=== PATIENT | male | born 1975 | race Caucasian/White ===

== ENCOUNTER → 2017-06-10 | Outpatient (CLI) | payer OTHER ==
[~2017-06-10] MED LIST: PRLSR20 PO
== END | disposition home or self-care (01) ==
LOC: C.PATHSPEC 17:52
PROVIDERS: ATTEND Urology
DX: Z30.2 Encounter for sterilization (principal)

== ENCOUNTER → 2017-07-03 | Outpatient (CLI) | payer OTHER ==
[~2017-07-03] VITALS: Ht 172.7 cm; Wt 85.4 kg
[2017-07-03 14:00] VITALS: BP 145/83; PULSE 62; Ht 172.7 cm; Wt 85.4 kg
== END | disposition home or self-care (01) ==
LOC: C.NEUR 13:13
PROVIDERS: ATTEND Internal Medicine Pulmonary Disease
DX: G47.33 Obstructive sleep apnea (adult) (pediatric) (principal)

== ENCOUNTER → 2017-08-11 | Outpatient (CLI) | payer OTHER ==
--- NOTE | 2017-08-18 07:49 | Sleep Study ---
Sleep Study Report Date of Service: 08/11/2017 Sleep Study Report CLINICAL DATA: The patient is a 41-year-old male with a history of snoring, disturbed nocturnal sleep, and excessive daytime somnolence. He completed the Mobile Sleepiness Scale and had a score of 10. The patient's father has obstructive sleep apnea despite not being significantly overweight. On the evening of 08/11 a home sleep apnea test was performed using the [employer] type 3 monitor. RECORDING RESULTS: The total recording time was 9.9 hours. The patient estimated sleep time was 7 hours. RESPIRATORY DATA: The patient had a total of 13 respiratory events including 2 obstructive apneas , 1 mixed apnea, 1 central apnea, and 9 hypopneas. Hypopneas were scored according to the 4 percent desaturation rule. The maximum respiratory event was 24 seconds. The ALEKSANDRA was 1.9 events per hour. This would suggest no significant sleep apnea. OXIMETRY DATA: The mean saturation for the night was 92 percent. The minimum saturation was 89 percent. There were 0 minutes less than 89 percent. HEART RATE DATA: The minimum heart rate was 37 beats per minute. The mean heart rate was 52 beats per minute. SNORING DATA: Snoring was seen often on throughout the test. IMPRESSIONS: 1. No evidence of obstructive sleep apnea 2. Primary snoring RECOMMENDATIONS: 1. Patient should be advised the appropriate principles of sleep hygiene. This would include having a regular sleep-wake schedule and allowing 8 hours of sleep time per night. 2. Consideration is given to evaluation for any other medical reason that might be causing daytime somnolence. Copies To 1: Severo Chowdary DO; Power Pereira, DO
== END | disposition home or self-care (01) ==
LOC: C.NEUR 08:30
PROVIDERS: ATTEND Internal Medicine Pulmonary Disease
DX: G47.33 Obstructive sleep apnea (adult) (pediatric) (principal)